=== PATIENT | male | born 1965 | race Caucasian/White ===

== ENCOUNTER 2024-02-07 15:02 | Emergency (ER) | payer SELFPAY ==
[~2024-02-07 15:02] MED LIST: Iopamidol 300 61% 100 ML VIAL FS ONE
[2024-02-07] MEDS ORDERED: Ipratropium/Albuterol 3 ML NEB ONE (15:41)
[2024-02-07 15:57] LABS: #Basophils 0.04 10x3/uL (0.0-0.2); #Eosinphils 0.01 10x3/uL (0.0-0.5); #Neutrophils 8.84 10x3/uL (1.5-8.4); %Basophils 0.4 % (0.0-2.0); %Eosinophils 0.1 % (0.0-6.0); %Lymphocytes 8.5 % (18.0-47.0); %Monocytes 8.3 % (0.0-10.0); %Neutrophils 81.2 % (40.0-75.0); Mean Corpuscular HGB CONC 32.6 g/dL (32.0-36.0); Mean Corpuscular Hemoglobin 27.3 pg (27.0-33.0); Mean Corpuscular Volume 83.8 fL (81.2-95.1); Mean Platelet Volume 10.5 fL (7.4-10.4); Platelet Count 335 10x3/uL (150-450); RBC Distribution Width 15.7 % (11.5-14.5); Red Blood Cell (RBC) Count 5.13 10x6/uL (4.32-5.72); White Blood Cell (WBC) Count 10.9 10x3/uL (3.5-10.5)
[2024-02-07 16:08] LABS: ALT (SGPT) 44 U/L (8-55); AST (SGOT) 37 U/L (5-34); Alkaline Phosphatase 391 U/L (40-110); Anion Gap 20 mmol/L (10-20); BUN (Urea Nitrogen) 59 mg/dL (8.4-25.7); Bilirubin, Total 1.3 mg/dL (0.2-1.2); Calc. Creatinine Clearance 0 mL/min (70-130); Carbon Dioxide 22 mmol/L (22-29); Chloride 98 mmol/L (98-107); Estimated GFR 36; Globulin 4.3 g/dL (2.4-3.5); Glucose 136 mg/dL (70-105); Lipase 59 U/L (8-78); Protein, Total 7.3 g/dL (6.0-8.3); Sodium 135 mmol/L (136-145)
[2024-02-07 16:09] LABS: Troponin I 0.195 ng/mL (< 0.028)
[2024-02-07 16:18] LABS: Calcium 13.6 mg/dL (7.8-10.44)
[2024-02-07] MEDS ORDERED: fentaNYL 50 mcg/mL 1 mL Vial ONE (16:34)
[2024-02-07] MEDS ORDERED: VANCOMYCIN 1.75 GM/350 ML BAG 1.75 GM in Premix 1 BAG IVPB SCH (17:45)
[2024-02-07] MEDS ORDERED: Cefepime 2 GM VIAL ONE (17:45)
[2024-02-07 18:34] LABS: Lactic Acid 1.5 mmol/L (0.5-2.2)
[2024-02-07 20:27] LABS: Bilirubin Neg (Negative); Blood, Urine Negative (Negative); Clarity Clear (Clear); Glucose, Urine (Dipstick) Normal (Negative); Ketone, Urine 5 mg/dL (Negative); Leukocyte Negative (Negative); Nitrite Negative (Negative); Protein, Urine (Dipstick) 30 mg/dl (Neg-Trace); Specific Gravity, Urine 1.025 (1.005-1.030); Urobilinogen Normal mg/dL (Less than 2)
[2024-02-07 20:37] LABS: Bacteria/HPF 2+ HPF (None Seen); CAUTI Indications for Culture Immunosuppressed; RBC/HPF 0-3 HPF (0-3); Squamous Epithelial 0-3 HPF (0-3); Transitional Epithelial 0-3 HPF (None Seen)
[2024-02-07 20:38] LABS: Mucous/LPF 2+ LPF (<2+)
[2024-02-07 20:41] LABS: Urine Culture Reflex Yes Yes
== END 2024-02-07 20:16 | disposition short-term general hospital (02) ==
LOC: EDBD 15:02 → CSHERS 15:02
DX: S72.012A Unspecified intracapsular fracture of left femur, initial encounter for closed fracture (principal); J18.9 Pneumonia, unspecified organism; C78.89 Secondary malignant neoplasm of other digestive organs; Z87.891 Personal history of nicotine dependence; X58.XXXA Exposure to other specified factors, initial encounter
CPT/HCPCS: 36415; 71045; 71275; 74177; 80053; 81001; 83605; 83690; 83880; 84484; 85025; 87040; 87086; 93005; 94640; 94760; 96365; 96366; 96375; J0692; J3010; J3370; J7620; Q9967